=== PATIENT | female | born 1950 | race Caucasian/White ===

== ENCOUNTER 2019-12-08 08:48 | Day surgery (SDC) | payer MEDICARE, OTHER ==
[~2019-12-08] VITALS: Ht 157.5 cm; Wt 60.4 kg
[~2019-12-08 08:48] MED LIST: AMLO5 PO; ANASTROZOLE PO; FAMC250; GABA100 PO; Hydrochlorothia25 MG PO; LOSA50 PO; Multi-Day Vita1 EACH PO; PRAV20 PO
== END 2019-12-08 11:09 | disposition home or self-care (01) ==
LOC: ORSCSDS 08:48
PROVIDERS: Internal Medicine Gastroenterology
PROC: 0DJD8ZZ Inspection of Lower Intestinal Tract, Via Natural or Artificial Opening Endoscopic (ICD-10-PCS; principal; 2019-12-08 10:15)
DX: Z12.11 Encounter for screening for malignant neoplasm of colon (principal); Z80.0 Family history of malignant neoplasm of digestive organs; K57.30 Diverticulosis of large intestine without perforation or abscess without bleeding; K64.8 Other hemorrhoids; E78.5 Hyperlipidemia, unspecified; I10 Essential (primary) hypertension; Z79.899 Other long term (current) drug therapy
CPT/HCPCS: J2704; J7120

== ENCOUNTER → 2020-08-21 | Outpatient (CLI) | payer MEDICARE, OTHER ==
[2020-08-23 15:58] LABS: CORONAVIRUS (COVID19) CSH-NRL Negative (Negative)
== END ==
LOC: LAB SHORT 16:58 → LAB 16:58
PROVIDERS: Nurse Practitioner Family
DX: Z20.828 Contact with and (suspected) exposure to other viral communicable diseases (principal)
CPT/HCPCS: U0003

== ENCOUNTER → 2021-08-24 | Outpatient (CLI) | payer MEDICARE, OTHER ==
[2021-08-24 15:41] LABS: BASOPHILS ABSOLUTE AUTO 0.08 K/mm3 (0.00-0.23); BASOPHILS PERCENT AUTO 1 % (0-2); EOSINOPHILS ABSOLUTE AUTO 0.22 K/mm3 (0.00-0.68); EOSINOPHILS PERCENT AUTO 3 % (0-6); Hematocrit 44.1 % (33.0-51.0); Hemoglobin 14.8 g/dL (11.5-16.0); IMMATURE GRAN ABSOLUTE AUTO 0.01 K/mm3 (0.00-0.10); IMMATURE GRAN PERCENT AUTO 0 % (0-1); LYMPHOCYTES ABSOLUTE AUTO 2.48 K/mm3 (0.84-5.20); LYMPHOCYTES PERCENT AUTO 34 % (21-46); MONOCYTES ABSOLUTE AUTO 0.71 K/mm3 (0.16-1.47); MONOCYTES PERCENT AUTO 10 % (4-13); Mean Corpuscular HGB 31.8 pg (26.0-34.0); Mean Corpuscular HGB Conc 33.6 g/dL (31.5-36.5); Mean Corpuscular Volume 95 fL (80-100); Mean Platelet Volume 9.4 fL (9.1-12.4); NEUTROPHILS ABSOLUTE AUTO 3.75 K/mm3 (1.96-9.15); NEUTROPHILS PERCENT AUTO 52 % (41-73); Platelet Count 313 K/mm3 (150-400); RDW Standard Deviation 48.2 fL (35.1-46.3); Red Blood Cell Count 4.65 M/mm3 (3.80-5.20); White Blood Cell Count 7.25 K/mm3 (4.00-11.30)
[2021-08-24 17:01] LABS: Alanine Aminotransfer (ALT/SGP 34 U/L (12-78); Albumin, Blood 4.5 g/dL (3.4-5.0); Albumin/Globulin Ratio 1.3 (0.8-1.8); Alk Phos 63 U/L (40-126); Anion Gap 8 mmol/L (6-16); Aspartate Aminotrans (AST/SGOT 16 U/L (12-37); Bilirubin, Total 0.5 mg/dL (0.1-1.0); Blood Urea Nitrogen 17 mg/dL (8-24); Bun/Creatinine Ratio 22.1 (12.0-20.0); CHOL/HDL RATIO 2.4; CO2, Blood 30 mmol/L (21-32); Calcium, Blood 10.3 mg/dL (8.5-10.1); Chloride, Blood 101 mmol/L (98-108); Cholesterol 247 mg/dL (50-200); Creatinine, Blood 0.77 mg/dL (0.40-1.00); Globulin, Blood 3.4 g/dL (2.2-4.0); Glomerular Filtration Rate >60 (60-); Glucose, Blood 86 mg/dL (70-99); HDL Cholesterol 105 mg/dL (>39); LDL/HDL RATIO 1.2; Low Density Lipoprotein Chol 125 mg/dL (<110); Potassium, Blood 4.1 mmol/L (3.5-5.5); Sodium, Blood 139 mmol/L (136-145); Total Protein, Blood 7.9 g/dL (6.4-8.2); Triglycerides 85 mg/dL (30-160); Very Low Density Lipoprot Chol 17 mg/dL (6-32)
== END | disposition home or self-care (01) ==
LOC: LAB 15:27 → LAB SHORT 15:27
PROVIDERS: Student in an Organized Health Care Education/Training Program
DX: E78.2 Mixed hyperlipidemia (principal); I10 Essential (primary) hypertension
CPT/HCPCS: 36415; 80053; 80061; 85025

== ENCOUNTER 2025-01-31 10:40 | Observation (INO) | payer MEDICARE, OTHER ==
[~2025-01-31] VITALS: Ht 157.5 cm; Wt 60.4 kg
[~2025-01-31 10:40] MED LIST changes: +Zithromax250 MG PO
[2025-01-31] MEDS ORDERED: Ondansetron HCl 2 MG / ML 2ML Vial IV ONE ×2 (12:05→12:30)
[2025-01-31 12:22] LABS: BASOPHILS ABSOLUTE AUTO 0.06 K/mm3 (0.00-0.23); BASOPHILS PERCENT AUTO 1 % (0-2); EOSINOPHILS ABSOLUTE AUTO 0.15 K/mm3 (0.00-0.68); EOSINOPHILS PERCENT AUTO 2 % (0-6); Hematocrit 43.1 % (33.0-51.0); Hemoglobin 14.7 g/dL (11.5-16.0); IMMATURE GRAN ABSOLUTE AUTO 0.04 K/mm3 (0.00-0.10); IMMATURE GRAN PERCENT AUTO 1 % (0-1); LYMPHOCYTES ABSOLUTE AUTO 1.64 K/mm3 (0.84-5.20); LYMPHOCYTES PERCENT AUTO 22 % (21-46); MONOCYTES PERCENT AUTO 7 % (4-13); Mean Corpuscular HGB 32.4 pg (26.0-34.0); Mean Corpuscular HGB Conc 34.1 g/dL (31.5-36.5); Mean Corpuscular Volume 95 fL (80-100); Mean Platelet Volume 9.8 fL (9.1-12.4); NEUTROPHILS ABSOLUTE AUTO 5.19 K/mm3 (1.96-9.15); NEUTROPHILS PERCENT AUTO 69 % (41-73); Platelet Count 290 K/mm3 (150-400); RDW Coefficient Variation 12.9 % (11.7-14.2); RDW Standard Deviation 44.9 fL (35.1-46.3); Red Blood Cell Count 4.54 M/mm3 (3.80-5.20); White Blood Cell Count 7.58 K/mm3 (4.00-11.30)
[2025-01-31] MEDS ORDERED: Ondansetron HCl 2 MG / ML 2ML Vial ONE (12:31)
[2025-01-31 13:06] LABS: Albumin, Blood 4.3 g/dL (3.4-5.0); Albumin/Globulin Ratio 1.4 (0.8-1.8); Bilirubin, Total 0.8 mg/dL (0.1-1.0); Bun/Creatinine Ratio 28.7 (12.0-20.0); Calcium, Blood 9.2 mg/dL (8.5-10.1); Creatinine, Blood 0.59 mg/dL (0.40-1.00); Potassium, Blood 3.1 mmol/L (3.5-5.5); Total Protein, Blood 7.3 g/dL (6.4-8.2)
[2025-01-31 14:06] LABS: Source, Urine Clean Catch
[2025-01-31 14:15] LABS: Bilirubin, Urine Neg (Neg); Blood, Urine Neg (Neg); Glucose Qualitative, Urine Neg (Neg); Ketones, Urine Neg (Neg); Leukocyte Esterase, Urine Neg (Neg); Nitrite, Urine Neg (Neg); Protein, Urine Neg (Neg); Specific Gravity, Urine 1.005 (1.003-1.022); Urobilinogen, Urine NORM (Normal)
[2025-01-31 14:29] LABS: Appearance, Urine Clear (Clear); Color, Urine Pale Yellow (P-Yellow)
[2025-01-31 14:29] LABS: International Normalized Ratio 0.97; Prothrombin Time Results 10.4 Sec (9.7-11.5)
[2025-01-31] MEDS ORDERED: Prochlorperazine Edisylate 10 mg Vial IV ONE (16:10)
[2025-01-31] MEDS ORDERED: Aspir 8181 MG PO (16:15)
[2025-01-31 17:32] VITALS: BP 162/66
[2025-01-31] MEDS ORDERED: AmLODIPine Besylate 5 MG Tab PO SCH (18:05)
--- NOTE | 2025-01-31 18:22 | NUR ---
ADMIT PT ADMITTED AT 1725. PT ORIENTED TO ROOM AND CALL LIGHT. PT HAVING ACUTE SHORT TERM MEMORY LOSS. PT DOES NOT REMEMBER EVENTS LEADING UP TO HER ADMISSION. PTS SISTER STATES THE PATIENT DROVE HERSELF TO THE HOSPITAL, THINKING SHE HAD A MAMOGRAM APPOINTMENT, THEN GOT LOST AND CALLED HER NEIGHBOR. BOYCE BEDSIDE SWALLOW COMPLETED AND PT PASSED, REG DIET ORDERED PER DR. JULIAN. AWAITING MRI. TELE IN PLACE, RUNNING NSR IN THE 90S. PT APPEARS INTACT NEUROLOGICALLY ASIDE FROM HER MEMORY. PT DENIES PAIN. CURRENYLY NO NAUSEA OR VOMITING. SKIN INTACT. 2ND RN SKIN ASSESSMENT COMPLETED WITH MARTITA QUISPE RN. PT SISTER AT BEDSIDE, PT RESTING IN BED. O2 REMOVED ON ADMIT PT WAS SATTING IN AT 100%. CURRENTLY ON RA, SATING IN THE HIGH 90S.
[2025-01-31 19:47] VITALS: BP 131/68
[2025-01-31 19:47] LABS: Base Excess Venous 2.4 mmol/L; Bicarbonate Venous 26.4 mmol/L (24.0-30.0); PCO2 Venous 39.6 mmHg (38-42); pH Blood Venous 7.44 (7.34-7.37)
[2025-01-31 23:56] VITALS: BP 134/55
[2025-02-01 03:30] VITALS: BP 125/70
--- NOTE | 2025-02-01 05:33 | NUR ---
Shift Summary Pt admitted for AMS, no s/s of AMS or CVA this shift. She is AOx4, equal strenghth bilat, steady and independent to the BR, eyes PERRLA. Repeat neuro checks t/o the night were all normal. Called NOC hospitalist with MRI results as requested per dayshift. Pt still doesn't remember much of yesterday. On tele running SR in the 60's, no events.
[2025-02-01] MEDS ORDERED: Acetaminophen 325 MG TABLET PO PRN (06:15)
[2025-02-01 06:33] LABS: BASOPHILS ABSOLUTE AUTO 0.05 K/mm3 (0.00-0.23); BASOPHILS PERCENT AUTO 1 % (0-2); EOSINOPHILS PERCENT AUTO 2 % (0-6); Hematocrit 43.8 % (33.0-51.0); Hemoglobin 15.3 g/dL (11.5-16.0); IMMATURE GRAN ABSOLUTE AUTO 0.03 K/mm3 (0.00-0.10); IMMATURE GRAN PERCENT AUTO 0 % (0-1); LYMPHOCYTES ABSOLUTE AUTO 1.98 K/mm3 (0.84-5.20); LYMPHOCYTES PERCENT AUTO 21 % (21-46); MONOCYTES PERCENT AUTO 9 % (4-13); Mean Corpuscular HGB 33.1 pg (26.0-34.0); Mean Corpuscular HGB Conc 34.9 g/dL (31.5-36.5); Mean Corpuscular Volume 95 fL (80-100); Mean Platelet Volume 9.7 fL (9.1-12.4); NEUTROPHILS ABSOLUTE AUTO 6.37 K/mm3 (1.96-9.15); NEUTROPHILS PERCENT AUTO 68 % (41-73); Platelet Count 316 K/mm3 (150-400); RDW Coefficient Variation 12.8 % (11.7-14.2); RDW Standard Deviation 44.8 fL (35.1-46.3); Red Blood Cell Count 4.62 M/mm3 (3.80-5.20); White Blood Cell Count 9.43 K/mm3 (4.00-11.30)
[2025-02-01 07:00] LABS: Albumin, Blood 3.9 g/dL (3.4-5.0); Albumin/Globulin Ratio 1.2 (0.8-1.8); Bilirubin, Total 0.6 mg/dL (0.1-1.0); Bun/Creatinine Ratio 18.6 (12.0-20.0); Calcium, Blood 9.5 mg/dL (8.5-10.1); Creatinine, Blood 0.65 mg/dL (0.40-1.00); Globulin, Blood 3.2 g/dL (2.2-4.0); Potassium, Blood 3.3 mmol/L (3.5-5.5); Total Protein, Blood 7.1 g/dL (6.4-8.2)
[2025-02-01 07:45] VITALS: BP 136/59
[2025-02-01] MEDS ORDERED: Rosuvastatin Calcium 10 MG Tab PO SCH (09:00)
[2025-02-01 11:07] VITALS: BP 130/52
--- NOTE | 2025-02-01 13:02 | NUR ---
DISCHARGE PT DISCHARGED AT 1245. PT & HER SISTER, DEE DEE, EDUCATED ON FOLLOW UP INSTRUCTIONS. BOTH WERE ENCOURAGED TO RETURN TO ER IF SYMPTOMS RETURN OR IS SUDDEN HEADACHE DEVELOPS. BOTH STATE THEY UNDERSTAND. PT SISTER PLANS TO STAY WITH THE PATIENT UNTIL HER , KHLOE IS HOME FROM TRAVELING. NO OTHER ACUTE CHANGES IN ASSESSMENT PRIOR TO DC. PT WHEELED OUT BY RN AND DRIVEN HOME BY SISTER.
== END 2025-02-01 13:03 | disposition home or self-care (01) ==
LOC: ER 10:40 → MEDS 10:41 → ER 14:39 → MEDS 17:27
PROVIDERS: Physician Assistant; Student in an Organized Health Care Education/Training Program; ADMIT Internal Medicine
DX: R41.82 Altered mental status, unspecified (principal); R51.9 Headache, unspecified; E87.6 Hypokalemia; I10 Essential (primary) hypertension; E78.5 Hyperlipidemia, unspecified; Z88.5 Allergy status to narcotic agent; Z88.0 Allergy status to penicillin; Z79.899 Other long term (current) drug therapy; Z79.82 Long term (current) use of aspirin
CPT/HCPCS: 36415; 70450; 70496; 70498; 70551; 71045; 80053; 81003; 82140; 82803; 82947; 85025; 85610; 93005; 93010; 96374-59; 97165; 99285-25; A9270; G0378; J0780; J2405; Q9967

== ENCOUNTER 2025-02-08 09:50 | Day surgery (SDC) | payer MEDICARE, OTHER ==
[~2025-02-08] VITALS: Ht 157.5 cm; Wt 58.4 kg
[~2025-02-08 09:50] MED LIST changes: +Aspir 8181 MG PO; +Lactated Ringer's 1,000 ML IV ONE; +propofoL 50 ML IV ONE
[2025-02-08] MEDS ORDERED: Lactated Ringer's 1,000 ML IV ONE (11:01)
[2025-02-08 12:17] VITALS: BP 111/60
== END 2025-02-08 12:20 | disposition home or self-care (01) ==
LOC: ORSCSDS 09:50
PROVIDERS: Internal Medicine Gastroenterology
PROC: 0DJD8ZZ Inspection of Lower Intestinal Tract, Via Natural or Artificial Opening Endoscopic (ICD-10-PCS; principal; 2025-02-08 11:15)
DX: R19.4 Change in bowel habit (principal); Z80.0 Family history of malignant neoplasm of digestive organs; K57.30 Diverticulosis of large intestine without perforation or abscess without bleeding; E78.5 Hyperlipidemia, unspecified; I10 Essential (primary) hypertension; Z87.891 Personal history of nicotine dependence; Z79.82 Long term (current) use of aspirin; Z79.899 Other long term (current) drug therapy
CPT/HCPCS: J2704; J7120